=== PATIENT | female | born 1995 | race Caucasian/White ===

== ENCOUNTER 2025-03-22 06:30 | Inpatient (IN) ==
[2025-03-22] MEDS: D5 1/2 NS 1,000 ML 1,000 ML IV SCH (06:55)
--- NOTE | 2025-03-22 07:13 | DR.OB ---
OB QUICK NOTE Assessment/Plan (1) Encounter for induction of labor: Assessment/Plan: L&D 03/22/25 at 7:05am S-No complaint. O-Afebrile,VSS RWL=380 with good LTV, +accel, no decel. CTX=none CVX=1cm/50%/-1/VTX AROM with clear fluid. IUPC and FSE placed. A-IUP at 39 0/7 weeks for induction PIH P-Begin pitocin induction Amnio infusion F/U labs Anticipate (2) -induced hypertension in third trimester:
[2025-03-22] MEDS ORDERED: REGLAN INJ 10 MG VIAL IVP PRN (07:17)
[2025-03-22] MEDS ORDERED: ZOFRAN INJ 4 MG VIAL IVP PRN (07:17)
[2025-03-22] MEDS: NS 1,000 ML IV 1,000 ML ONE (07:35)
[2025-03-22] MEDS: OXYTOCIN 20 UNIT/1,000 ML-NS 20 UNIT/1,000 ML PLAST..BAG IV PRN (07:40)
[2025-03-22 07:41] LABS: INR 0.97 (0.8-1.3)
[2025-03-22 07:44] LABS: LACTATE DEHYDROGENASE 148.0 Units/L (81-234)
[2025-03-22] MEDS ORDERED: NS 1,000 ML IV 1,000 ML IV SCH (08:00)
[2025-03-22] MEDS: LR 1,000 ML IV 1,000 ML IV ONE (09:55)
[2025-03-22] MEDS: FENTANYL VIAL INJ 100 mcg ONE (10:49)
[2025-03-22] MEDS: NAROPIN EPIDURAL 0.2% 100 ML ONE (10:49)
[2025-03-22] MEDS ORDERED: NUBAIN INJ 10 MG AMP ONE (13:12)
[2025-03-22] MEDS: NUBAIN INJ 10 MG AMP IVP PRN (13:15)
[2025-03-22] MEDS: LIDOCAINE 2%-EPI 1:200,000 ONE (16:31)
[2025-03-22] MEDS: BETADINE SOLN ONE (16:31)
[2025-03-22] MEDS: D5 1/2 NS 1,000 ML 1,000 ML IV ONE (16:32)
[2025-03-22] MEDS: NUBAIN INJ 10 MG AMP ONE (16:33)
[2025-03-22] MEDS: XYLOCAINE 1 % (PLAIN) ONE (16:33)
[2025-03-22] MEDS: PITOCIN IVP ONE (17:15)
--- NOTE | 2025-03-22 17:31 | DR.OB ---
OB QUICK NOTE Assessment/Plan (1) Encounter for induction of labor: Assessment/Plan: Delivery Note PHOTOGRAPHY COLORIST 03/22/25 at 17:11 Patient complete and pushing. Mother and infant stable. Head delivered over intact perineum. No nuchal cord. Nose and mouth bulb suctioned upon delivery of the head. Body delivered over intact perineum. Cord clamped x 2 and cut. Infant handed to attendant. Cord sent for gases. Placenta delivered spontaneously / intact / 3 vessel cord. No CVX / vaginal / perineal tears noted. Viable female delivered by , VTX/OA, wt=5'13" and 8/9, stable to NBN. Mother stable to RR. VJY=[id number]. (2) -induced hypertension in third trimester:
[2025-03-22] MEDS ORDERED: MOTRIN TAB 800 MG PO PRN (17:32)
[2025-03-22] MEDS: OXYTOCIN 20 UNIT/1,000 ML-NS 20 UNIT/1,000 ML PLAST..BAG IV SCH (17:54)
[2025-03-22] MEDS: PITOCIN ONE (18:04)
[2025-03-22] MEDS ORDERED: DERMOPLAST PAIN RELIEF SPRAY TOP PRN (18:15)
[2025-03-22] MEDS ORDERED: MILK OF MAGNESIA PO PRN (18:15)
[2025-03-22] MEDS ORDERED: AMBIEN PO PRN (18:15)
[2025-03-22] MEDS: ADACEL or BOOSTRIX TDaP VACCINE IM ONE (22:49)
[2025-03-22] MEDS: MOTRIN TAB 800 MG PO PRN (22:52)
[2025-03-23 08:02] VITALS: RESP 18
[2025-03-23] MEDS: PRENATAL PLUS PO SCH (08:47)
[2025-03-23 15:55] VITALS: BP 138/76; PULSE 89; TEMP 97.8; O2SAT 98
== END 2025-03-23 18:20 | disposition home or self-care (01) | DRG 807 ==
LOC: LD 06:30 → MED/SURG 18:11
PROVIDERS: ADMIT Specialist; ATTEND Specialist
DX: O13.3 Gestational [pregnancy-induced] hypertension without significant proteinuria, third trimester; Z37.0 Single live birth; Z72.0 Tobacco use; Z3A.39 39 weeks gestation of pregnancy; Z01.812 Encounter for preprocedural laboratory examination